=== PATIENT | female | born 1945 | race Two or more races ===

== ENCOUNTER 2024-05-12 10:18 | Inpatient (IN) | payer OTHER ==
[2024-05-12] MEDS ORDERED: methylPREDNISolone NA SUCC 125 MG/2 ML VIAL ONE (10:41)
[2024-05-12] MEDS ORDERED: ALBUTEROL SO4 2.5/IPRATROPIUM 0.5 INH SOL 3 ML VIAL.NEB. NEB ONE ×3 (10:41→13:26)
[2024-05-12] MEDS: SODIUM CHLORIDE 1,000 ML IV STA (11:14)
[2024-05-12] MEDS: methylPREDNISolone NA SUCC 125 MG/2 ML VIAL IVPB ONE (11:14)
[2024-05-12] MEDS: ALBUTEROL SO4 2.5/IPRATROPIUM 0.5 INH SOL 3 ML VIAL.NEB. NEB ONE (11:14)
[2024-05-12 11:22] LABS: VENOUS BASE EXCESS -3.1 mmol/L (-2-2); VENOUS O2 SATURATION 31.9 % (70-80)
[2024-05-12 11:25] LABS: VENOUS PCO2 75.1 mmHg (38-52); VENOUS PH 7.182 (7.310-7.410)
[2024-05-12 11:40] LABS: BASO % 0.2 % (0-2.0); EOS % 0.1 % (0-4.5); HEMATOCRIT 48.7 % (32.4-45.2); HEMOGLOBIN 15.7 GM/dL (10.7-15.3); LYMPH % 7.7 % (8-40); MCH 30.1 pg (25.7-33.7); MCHC 32.3 g/dl (32.0-36.0); MEAN CELL VOLUME 93.1 fl (80-96); MEAN PLT VOLUME 9.7 fl (7.5-11.1); MONO % 2.6 % (3.8-10.2); NEUT % 89.4 % (42.8-82.8); PLATELET COUNT 140 10^3/uL (134-434); RBC 5.23 M/mm3 (3.60-5.2); RDW 14.6 % (11.6-15.6); WHITE BLOOD COUNT 5.6 K/mm3 (4.0-10.0)
[2024-05-12 11:52] LABS: POTASSIUM 3.7 mmol/L (3.5-5.1)
[2024-05-12 11:54] LABS: ALBUMIN 3.6 g/dl (3.4-5.0); BLOOD UREA NITROGEN 12.2 mg/dL (7-18); CALCIUM 8.4 mg/dL (8.5-10.1)
[2024-05-12 11:59] LABS: BILIRUBIN,TOTAL 0.3 mg/dL (0.2-1); TOT PROT 6.4 g/dl (6.4-8.2)
[2024-05-12] MEDS ORDERED: AZITHROMYCIN IVPB 500 MG/250 ML BAG IVPB ONE (12:10)
[2024-05-12] MEDS: ALBUTEROL SO4 2.5/IPRATROPIUM 0.5 INH SOL 3 ML VIAL.NEB. NEB SCH (12:19)
[2024-05-12] MEDS: AZITHROMYCIN IVPB 500 MG in DEXTROSE 5%-WATER - 250 ML IVPB ONE (12:20)
[2024-05-12 12:40] LABS: MAGNESIUM 1.4 mg/dL (1.8-2.4)
[2024-05-12] MEDS ORDERED: MAGNESIUM SULFATE IN WATER 2 GM/50 ML IVPB IVPB ONE (13:18)
[2024-05-12] MEDS: MAGNESIUM SULFATE IN WATER 2 GM/50 ML IVPB IVPB ONE (13:51)
[2024-05-12 14:15] LABS: INR 1.05 (0.83-1.09); PROTHROMBIN TIME (PATIENT) 12.1 SEC (9.7-13.0)
[2024-05-12 14:18] LABS: ACTIVATED PTT 24.6 SECONDS (25.2-36.5)
[2024-05-12 14:45] LABS: ARTERIAL BLD GAS O2 SATURATION 97.4 % (95-98); ARTERIAL BLOOD GAS BASE EXCESS -4.5 mmol/L (-2-2); ARTERIAL BLOOD GAS PO2 121.2 mmHg (80-100)
[2024-05-12 14:51] LABS: ALLENS TEST POSITIVE; ARTERIAL BLOOD GAS pH 7.188 (7.350-7.450)
[2024-05-12 15:51] LABS: ARTERIAL BLD GAS O2 SATURATION 96.5 % (95-98); ARTERIAL BLOOD GAS BASE EXCESS -5.8 mmol/L (-2-2)
[2024-05-12 15:52] LABS: ALLENS TEST POSITIVE
[2024-05-12] MEDS ORDERED: ASPIRIN COATED 81 MG TABLET.EC ONE (16:35)
[2024-05-12] MEDS ORDERED: metFORMIN HCL 500 MG TABLET (FP) ONE (16:36)
[2024-05-12] MEDS ORDERED: ENOXAPARIN NA (PORCINE) 40 MG/0.4 ML DISP.SYRIN SQ ONE (16:36)
[2024-05-12] MEDS ORDERED: ALBUTEROL SO4 0.083% IH SOL 2.5 MG/3 ML VIAL.NEB. NEB ONE ×2 (16:36→20:43)
[2024-05-12] MEDS: ASPIRIN COATED 81 MG TABLET.EC PO SCH (16:52)
[2024-05-12] MEDS: metFORMIN HCL 500 MG TABLET (FP) PO SCH (16:52)
[2024-05-12] MEDS: ENOXAPARIN NA (PORCINE) 40 MG/0.4 ML DISP.SYRIN SQ SCH (16:52)
[2024-05-12] MEDS: ALBUTEROL SO4 0.083% IH SOL 2.5 MG/3 ML VIAL.NEB. NEB SCH (16:52)
[2024-05-12] MEDS: LACTATED RINGERS SOLUTION 1,000 ML/1,000 ML INFUS.BAG IV SCH (17:07)
[2024-05-12] MEDS ORDERED: INSULIN ASPART SLIDING SCALE (NOVOLOG) 1 VIAL SQ ONE (17:29)
[2024-05-12] MEDS: INSULIN ASPART SLIDING SCALE (NOVOLOG) 1 VIAL SQ SCH (17:34)
[2024-05-12 17:35] LABS: LACTIC ACID 5.2 mmol/L (0.4-2.0)
[2024-05-12] MEDS ORDERED: methylPREDNISolone NA SUCC 40 MG/1 ML VIAL ONE (18:42)
[2024-05-12] MEDS: methylPREDNISolone NA SUCC 40 MG/1 ML VIAL IVPUSH SCH (18:59)
[2024-05-12 20:04] LABS: LACTIC ACID 4.6 mmol/L (0.4-2.0)
[2024-05-12] MEDS ORDERED: ATORVASTATIN CA 40 MG TABLET (FP) ONE (20:43)
[2024-05-12] MEDS: ATORVASTATIN CA 40 MG TABLET (FP) PO SCH (21:45)
[2024-05-13] MEDS ORDERED: ALBUTEROL SO4 0.5 % INH SOLN 2.5 MG/0.5 ML VIAL.NEB. NEB ONE (02:36)
[2024-05-13] MEDS ORDERED: methylPREDNISolone NA SUCC 40 MG/1 ML VIAL ONE ×3 (02:36→18:07)
[2024-05-13] MEDS: glipiZIDE 5 MG TABLET (FP) PO SCH (07:30)
[2024-05-13] MEDS ORDERED: INSULIN ASPART SLIDING SCALE (NOVOLOG) 1 VIAL SQ ONE (07:50)
[2024-05-13] MEDS ORDERED: metFORMIN HCL 500 MG TABLET (FP) ONE ×2 (07:50→16:32)
[2024-05-13] MEDS ORDERED: glipiZIDE 5 MG TABLET (FP) ONE (07:50)
[2024-05-13 08:37] LABS: HEMATOCRIT 43.6 % (32.4-45.2); HEMOGLOBIN 14.5 GM/dL (10.7-15.3); MCH 30.4 pg (25.7-33.7); MCHC 33.3 g/dl (32.0-36.0); MEAN CELL VOLUME 91.4 fl (80-96); MEAN PLT VOLUME 9.3 fl (7.5-11.1); PLATELET COUNT 127 10^3/uL (134-434); RBC 4.77 M/mm3 (3.60-5.2); RDW 14.5 % (11.6-15.6); WHITE BLOOD COUNT 9.1 K/mm3 (4.0-10.0)
[2024-05-13] MEDS ORDERED: ALBUTEROL SO4 0.083% IH SOL 2.5 MG/3 ML VIAL.NEB. NEB ONE ×5 (08:56→19:50)
[2024-05-13 10:01] LABS: POTASSIUM 4.3 mmol/L (3.5-5.1)
[2024-05-13 10:03] LABS: BLOOD UREA NITROGEN 13.7 mg/dL (7-18); CALCIUM 9.2 mg/dL (8.5-10.1)
[2024-05-13 10:07] LABS: CREATININE 0.8 mg/dL (0.55-1.3)
[2024-05-13] MEDS ORDERED: ENOXAPARIN NA (PORCINE) 40 MG/0.4 ML DISP.SYRIN SQ ONE (10:10)
[2024-05-13] MEDS: AZITHROMYCIN 250 MG TABLET PO SCH (10:20)
[2024-05-13] MEDS: CEFTRIAXONE 1 G/50 ML PREMIX 50 ML IVPB SCH (14:25)
[2024-05-13] MEDS ORDERED: CEFTRIAXONE 1 G/50 ML PREMIX 50 ML IVPB ONE (14:53)
[2024-05-13] MEDS: ALBUTEROL SO4 0.083% IH SOL 2.5 MG/3 ML VIAL.NEB. NEB PRN (15:29)
[2024-05-13] MEDS: ALBUTEROL SO4 0.083% IH SOL 2.5 MG/3 ML VIAL.NEB. NEB SCH (16:50)
[2024-05-13] MEDS ORDERED: ATORVASTATIN CA 40 MG TABLET (FP) ONE (21:10)
[2024-05-13] MEDS: BUDESONIDE/FORMETEROL FUMARATE 160/4.5 mcg INHALER IH SCH (22:01)
[2024-05-13 22:38] VITALS: BMI 21.0
[2024-05-14] MEDS: methylPREDNISolone NA SUCC 40 MG/1 ML VIAL IVPUSH SCH (10:21)
[2024-05-14] MEDS: POLYETHYLENE GLYCOL (HEALTHYLAX) 3350 17 GM PACKET PO SCH (11:50)
[2024-05-14] MEDS: guaiFENesin/D-METHORPHAN HB 10 ML UNIT-DOSE CUPS PO PRN (17:26)
[2024-05-14] MEDS: SENNOSIDES 8.8 MG/5 ML SYRUP PO SCH (21:23)
[2024-05-14] MEDS: ATORVASTATIN CA 10 MG TABLET (FP) PO SCH (21:23)
[2024-05-14] MEDS: INSULIN ASPART SLIDING SCALE (NOVOLOG) 1 VIAL SQ SCH (21:23)
[2024-05-15] MEDS: predniSONE 20 MG TABLET (UD) PO SCH (09:50)
[2024-05-15] MEDS ORDERED: ALBUTEROL SO4 2.5/IPRATROPIUM 0.5 INH SOL 3 ML VIAL.NEB. NEB SCH (12:00)
[2024-05-15 12:41] LABS: HEMATOCRIT 42.9 % (32.4-45.2); HEMOGLOBIN 13.9 GM/dL (10.7-15.3); MCH 29.7 pg (25.7-33.7); MCHC 32.4 g/dl (32.0-36.0); MEAN CELL VOLUME 91.6 fl (80-96); MEAN PLT VOLUME 9.6 fl (7.5-11.1); PLATELET COUNT 124 10^3/uL (134-434); RBC 4.69 M/mm3 (3.60-5.2); RDW 14.7 % (11.6-15.6); WHITE BLOOD COUNT 9.1 K/mm3 (4.0-10.0)
[2024-05-15 12:55] LABS: POTASSIUM 4.1 mmol/L (3.5-5.1)
[2024-05-15 12:57] LABS: CALCIUM 8.7 mg/dL (8.5-10.1)
[2024-05-15 13:01] LABS: CREATININE 0.8 mg/dL (0.55-1.3); PHOSPHOROUS 2.2 mg/dL (2.5-4.9)
[2024-05-15] MEDS: LEVALBUTEROL HCL 0.31 MG/3 ML VIAL.NEB IH SCH (15:00)
[2024-05-15] MEDS: IPRATROPIUM BR 0.02% 0.5 MG/2.5 ML VIAL.NEB. NEB SCH (15:00)
[2024-05-15] MEDS: NAPH,MB-DB/K PH,MBDB POWDER PACKET PO ONE (15:47)
[2024-05-16 08:48] LABS: POTASSIUM 4.5 mmol/L (3.5-5.1)
[2024-05-16 08:56] LABS: BLOOD UREA NITROGEN 17.7 mg/dL (7-18); CALCIUM 8.2 mg/dL (8.5-10.1); MAGNESIUM 2.1 mg/dL (1.8-2.4)
[2024-05-16 08:59] LABS: CREATININE 0.8 mg/dL (0.55-1.3)
[2024-05-16 09:00] LABS: PHOSPHOROUS 2.8 mg/dL (2.5-4.9)
[2024-05-16 17:43] LABS: BASO % 0.2 % (0-2.0); HEMATOCRIT 44.2 % (32.4-45.2); HEMOGLOBIN 13.9 GM/dL (10.7-15.3); LYMPH % 5.2 % (8-40); MCH 29.4 pg (25.7-33.7); MCHC 31.4 g/dl (32.0-36.0); MEAN CELL VOLUME 93.5 fl (80-96); MEAN PLT VOLUME 10.1 fl (7.5-11.1); MONO % 2.5 % (3.8-10.2); NEUT % 92.1 % (42.8-82.8); PLATELET COUNT 135 10^3/uL (134-434); RBC 4.73 M/mm3 (3.60-5.2); RDW 14.2 % (11.6-15.6); WHITE BLOOD COUNT 6.6 K/mm3 (4.0-10.0)
[2024-05-16 18:04] LABS: ALBUMIN 3.5 g/dl (3.4-5.0)
[2024-05-16 18:07] LABS: BILIRUBIN,DIRECT 0.1 mg/dL (0.0-0.2)
[2024-05-16 18:09] LABS: BILIRUBIN,TOTAL 0.3 mg/dL (0.2-1); TOT PROT 6.3 g/dl (6.4-8.2)
[2024-05-16 18:10] LABS: ANISOCYTOSIS 1+; MACROCYTOSIS 0; OVALOCYTE 1+
[2024-05-17 08:14] LABS: HEMATOCRIT 40.1 % (32.4-45.2); HEMOGLOBIN 13.2 GM/dL (10.7-15.3); MCH 30.1 pg (25.7-33.7); MCHC 32.9 g/dl (32.0-36.0); MEAN CELL VOLUME 91.5 fl (80-96); MEAN PLT VOLUME 9.3 fl (7.5-11.1); PLATELET COUNT 123 10^3/uL (134-434); RBC 4.38 M/mm3 (3.60-5.2); RDW 13.8 % (11.6-15.6)
[2024-05-17 08:33] LABS: ALBUMIN 3.2 g/dl (3.4-5.0)
[2024-05-17 08:36] LABS: POTASSIUM 4.4 mmol/L (3.5-5.1)
[2024-05-17 08:37] LABS: BILIRUBIN,DIRECT 0.1 mg/dL (0.0-0.2)
[2024-05-17 08:38] LABS: BILIRUBIN,TOTAL 0.3 mg/dL (0.2-1)
[2024-05-17 08:39] LABS: TOT PROT 5.3 g/dl (6.4-8.2)
[2024-05-17 08:46] LABS: CALCIUM 8.2 mg/dL (8.5-10.1)
[2024-05-17 08:50] LABS: CREATININE 0.7 mg/dL (0.55-1.3)
[2024-05-17 09:00] LABS: INR 1.05 (0.83-1.09); PROTHROMBIN TIME (PATIENT) 11.8 SEC (9.7-13.0)
[2024-05-17] MEDS ORDERED: ACETAMINOPHEN INJECTION 100 ML ONE (12:20)
[2024-05-17] MEDS ORDERED: SEVOFLURANE 250 ML BTL ONE (12:20)
[2024-05-17] MEDS ORDERED: PROPOFOL 20 ML ONE (12:22)
[2024-05-17] MEDS ORDERED: ONDANSETRON 4 MG/2 ML VIAL ONE (12:23)
[2024-05-17] MEDS ORDERED: DEXAMETHASONE SOD PHOSPHATE 4 MG/1 ML VIAL ONE (12:23)
[2024-05-17] MEDS ORDERED: LIDOCAINE HCL/PF 2% SDV 5ML VIAL ONE (12:23)
[2024-05-17] MEDS ORDERED: MIDAZOLAM HCL 2 MG/2 ML SINGLE DOSE VIAL ONE (12:23)
[2024-05-17] MEDS: ceFAZolin SODIUM 1 GM VIAL IVPB ONE (13:37)
[2024-05-17] MEDS ORDERED: guaiFENesin/D-METHORPHAN HB 10 ML UNIT-DOSE CUPS PO PRN (14:11)
[2024-05-17] MEDS ORDERED: ALBUTEROL SO4 0.083% IH SOL 2.5 MG/3 ML VIAL.NEB. NEB PRN (14:11)
[2024-05-17] MEDS ORDERED: ONDANSETRON 4 MG/2 ML VIAL IVPUSH PRN (14:42)
[2024-05-17] MEDS ORDERED: PROMETHAZINE HCL 25 MG/1 ML VIAL IVPB PRN (14:42)
[2024-05-17] MEDS: IPRATROPIUM BR 0.02% 0.5 MG/2.5 ML VIAL.NEB. NEB SCH (15:55)
[2024-05-17] MEDS: LEVALBUTEROL HCL 0.31 MG/3 ML VIAL.NEB IH SCH (15:55)
[2024-05-17] MEDS: INSULIN ASPART SLIDING SCALE (NOVOLOG) 1 VIAL SQ SCH (16:17)
[2024-05-17] MEDS: metFORMIN HCL 500 MG TABLET (FP) PO SCH (17:20)
[2024-05-17] MEDS: LACTATED RINGERS SOLUTION 1,000 ML IV SCH (17:51)
[2024-05-17] MEDS: ATORVASTATIN CA 10 MG TABLET (FP) PO SCH (22:57)
[2024-05-17] MEDS: POLYETHYLENE GLYCOL (HEALTHYLAX) 3350 17 GM PACKET PO SCH (22:57)
[2024-05-17] MEDS: SENNOSIDES 8.8 MG/5 ML SYRUP PO SCH (22:57)
[2024-05-17] MEDS: BUDESONIDE/FORMETEROL FUMARATE 160/4.5 mcg INHALER IH SCH (22:58)
[2024-05-18] MEDS: glipiZIDE 5 MG TABLET (FP) PO SCH (06:46)
[2024-05-18] MEDS ORDERED: predniSONE 20 MG TABLET (UD) PO SCH (10:00)
[2024-05-18] MEDS: CEFTRIAXONE 1 G/50 ML PREMIX 50 ML IVPB SCH (11:12)
[2024-05-18] MEDS: ASPIRIN COATED 81 MG TABLET.EC PO SCH (11:13)
[2024-05-18] MEDS: predniSONE 20 MG TABLET (UD) PO SCH (11:13)
[2024-05-18 11:54] VITALS: RESP 16
[2024-05-18 15:01] VITALS: BP 143/59; PULSE 102; TEMP 98.6
== END 2024-05-18 16:50 | disposition home or self-care (01) | DRG 988 ==
LOC: JER 10:18 → JERBED 13:50 → J4S 05-13 21:36
PROVIDERS: ADMIT Internal Medicine; ATTEND Internal Medicine
PROC: 0T778DZ Dilation of Left Ureter with Intraluminal Device, Via Natural or Artificial Opening Endoscopic (ICD-10-PCS; principal; 2024-05-17 13:00)
DX: J12.1 Respiratory syncytial virus pneumonia (principal); E87.29 Other acidosis; I24.89 Other forms of acute ischemic heart disease; J44.1 Chronic obstructive pulmonary disease with (acute) exacerbation; N13.2 Hydronephrosis with renal and ureteral calculous obstruction; I47.29 Other ventricular tachycardia; J44.0 Chronic obstructive pulmonary disease with (acute) lower respiratory infection; E11.9 Type 2 diabetes mellitus without complications; R09.02 Hypoxemia; I27.20 Pulmonary hypertension, unspecified; E78.5 Hyperlipidemia, unspecified; J18.9 Pneumonia, unspecified organism
CPT/HCPCS: 0241U-QW; 36415; 36600; 71046-TC-FY; 71250-TC; 74176-TC; 76000-TC-FY; 76775-TC; 80048; 80053; 80076; 82550; 82803; 82962; 83605; 83735; 83880; 84100; 84484; 85025; 85027; 85379; 85610; 85730; 86850; 86900; 86901; 87899; 93005; 93010; 93306-TC; 94640; 94760; 94761; 97116-GP; 97162-GP; 99285-25; C2617; J0131